=== PATIENT | female | born 1960 | race Caucasian/White ===

== ENCOUNTER → 2022-11-21 | Outpatient (CLI) | payer BC ==
[2022-11-21 11:06] LABS: HCT 48.5 % (37.2-46.3); HGB 15.6 d/dL (12.0-15.0); MCH 28.2 pg (27.0-32.0); MCHC 32.2 d/dL (32.0-37.0); MCV 87.7 FL (80.0-97.0); Mean Platelet Volume 10.9 FL (9.5-12.2); NRBC Per 100 WBC 0 X 10*3/uL (0.00-0.01); Platelet Count 259 X 10*3/uL (140-440); RBC 5.53 X 10*6/uL (4.10-5.20); RDW 13.2 % (11.5-14.5); WBC 7.87 X 10*3/uL (4.50-10.00)
[2022-11-21 11:07] LABS: Basophils # (A) 0.06 X 10*3/uL (0.00-0.10); Basophils % (A) 0.8 %; Eosinophils % (A) 2.5 %; Lymphocytes # (A) 2.36 X 10*3/uL (0.90-5.00); Monocytes # (A) 0.62 X 10*3/uL (0.20-1.00); Monocytes % (A) 7.9 %; Neutrophils # (A) 4.61 X 10*3/uL (1.80-7.70); Neutrophils % (A) 58.5 %
[2022-11-21 11:14] LABS: BUN/Creat Ratio 20.43 Ratio (12.00-20.00); Blood Urea Nitrogen 14.3 mg/dL (9.0-27.0); Calcium 9.6 mg/dL (8.7-10.3); Chloride 102 mmol/L (96-109); Glucose 154 mg/dL (70-110); Potassium 4.6 mmol/L (3.5-5.5); Sodium 139 mmol/L (135-145)
== END | disposition home or self-care (01) ==
LOC: LABWHC1 07:53
PROVIDERS: ATTEND Orthopaedic Surgery Hand Surgery
DX: Z01.818 Encounter for other preprocedural examination (principal); I11.9 Hypertensive heart disease without heart failure; I49.8 Other specified cardiac arrhythmias; I45.10 Unspecified right bundle-branch block; I45.19 Other right bundle-branch block; I45.81 Long QT syndrome
CPT/HCPCS: 36415; 80048; 85025; 93005

== ENCOUNTER 2022-12-13 07:23 | Day surgery (SDC) | payer BC ==
[2022-12-06 14:11] VITALS: BMI 43.3
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
[~2022-12-13 07:23] MED LIST: DEXAMETHASONE SOD PHOSPHATE 4 MG/ML 1 ML VIAL IV ONE; HYDROmorphone 0.5 MG/0.5 ML SYRINGE IVP PRN; LACTATED RINGERS 1,000 ML IV SCH; LIDOCAINE 1% (10MG/ML) FOR IV START INTRADERMA PRN; ONDANSETRON 4 MG/2 ML VIAL IVP ONE
[2022-12-13 08:13] LABS: Glucose,Whole Blood 129 mg/dL (70-110)
[2022-12-13] MEDS ORDERED: LIDOCAINE 2% (PF) 20 MG/ML 5 ML VIAL ONE (08:20)
[2022-12-13] MEDS ORDERED: fentaNYL (PF) 50 MCG/ML 2 ML AMP IVP ONE (08:51)
[2022-12-13] MEDS ORDERED: MIDAZOLAM 2 MG/2 ML VIAL IVP ONE (08:51)
[2022-12-13] MEDS ORDERED: ePHEDrine 50 MG/ML 1 ML VIAL ONE (09:16)
[2022-12-13] MEDS ORDERED: fentaNYL (PF) 50 MCG/ML 2 ML AMP ONE (09:16)
[2022-12-13] MEDS ORDERED: ROPIVACAINE 5 MG/ML 30 ML VIAL ONE (09:16)
[2022-12-13] MEDS ORDERED: LIDOCAINE 1% INJ 10MG/ML (20 ML MDV) ONE (09:16)
[2022-12-13] MEDS ORDERED: KETOROLAC 15 MG/ML 1 ML VIAL ONE (09:16)
[2022-12-13] MEDS ORDERED: LIDOCAINE 2% (PF) 20 MG/ML 2 ML VIAL ONE (09:16)
[2022-12-13] MEDS ORDERED: PROPOFOL 10 MG/ML 20 ML VIAL IV ONE (09:16)
--- NOTE | 2022-12-13 10:29 | P.ANPRN ---
Procedure Note - Anesthesia - Nerve Block Performed Right Axillary Single Date of Procedure: 12/13/22 Procedure Start Time: 08:51 Procedure Stop Time: 08:56 Location of Patient: PreOp Indication: Acute Post-Operative Pain, Requested by Surgeon Specifically requested for management of pain by DrKayleigh: Merritt Patel Sedation Type: Sedate with meaningful contact maintained Preparation: Sterile Prep Position: Supine Catheter: None Needle Types: Pajunk Needle Gauge: 20 Ultrasound used to visualize needle placement: Yes Ultrasound used to observe medication spread: Yes Blood Aspirated: No Pain Paresthesia on Injection Noted: No Resistance on Injection: Normal Image Stored and Saved: Yes Events: Uneventful and Well Tolerated
--- NOTE | 2022-12-13 10:35 | P.OP ---
Date of Procedure: 12/13/22 Preoperative Diagnosis: 1.) Right thumb CMC arthritis 2.) Right wrist STT arthritis Postoperative Diagnosis: 1.) Right thumb CMC arthritis 2.) Right wrist STT arthritis Procedure(s) Performed: 1.) Right thumb CMC basilar joint arthroplasty 2.) Right partial trapezoid excision Implants: Arthrex 3.5mm SwivelLock suture anchor x 2 Anesthesia: GETA, regional Surgeon: Merritt Patel Machine Lacer #1: Guillermo Carney Estimated Blood Loss (ml): 0 Pathology: none sent Condition: stable Disposition: PACU Description of Procedure: This is a 61 year old female who presents today for a right thumb CMC basal joint arthroplasty after having failed conservative treatment for severe thumb CMC arthritis and partial trapezoid excision for advanced STT arthritis. Risks and benefits of surgery were discussed with the patient including bleeding, da mage to surrounding tissue, infection, need for further surgery as well as risks of anesthesia including pulmonary embolism and even and the patient wished to proceed with surgical intervention. The patients was seen in the pre- operative area by myself. Consent and H&P were completed and updated. The correct extremity was marked in the pre-operative area by myself and all other questions were answered. Patient received a upper extremity nerve block by the department of anesthesia. He then was brought to the operating room by the department of anesthesia. They remained on the portable stretcher and a rolling hand table was brought to the side of the operative extremity. The patient was then drifted off to sleep by the department of anesthesia. A nonsterile tourniquet was then applied to the operative extremity and the right upper extremity was then prepped and draped in normal sterile fashion. Pre-operative time out was performed indicating the correct patient, procedure and laterality. All in the room agreed. Pre-operative antibiotics were given prior to skin incision. The operative extremity was the exsanguinated with an esmarch bandage and the tourniquet was inflated to 2 50mmHg. Longitudinal incision was made over the left thumb CMC joint with a 15 blade scalpel. Blunt dissection was taken down to subcutaneous tissues with littler scissors taking care to preserve the branches of the superficial radial nerve. Dorsal radial artery was identified proximally in the incision and protected throughout the procedure. Scalpel was then made to incise the thumb CMC joint creating full thickness flaps off of the proximal metacarpal base and trapezium, this plane was further developed with a periosteal elevator. Elevator was then utilized to identify the thumb CMC joint and scaphotrapezial joint. McGlamory elevator was then used to excise the trapezium whole. There was advanced arthritic changes at the scaphoid and trapezoid articulation. A 1/4 inch osteotome was used to remove the proximal half of the trapezoid and there was no longer contact between the scaphoid and trapezoid in flexion/extension and radial and ulnar deviation Guidewire was then introduced down to the laser line at the base of the first metacarpal through the same incision and was over drilled. Another guidewire was then inserted at the radial base of the first metacarpal near the Insertion of APL and was then over drilled with normal drill guide. A 3.5mm Arthrex SwiveLock anchor was then inserted into the base of the first metacarpal. While holding the thumb in slight traction and full adduction, another 3.5mm Arthrex SwiveLock anchor was inserted into the base of the second metacarpal and the two strands of fibertape were centered across the first metacarpal base to create a sling around the base suspending the thumb metacarpal, good garrett purchase was appreciated. The thumb was successfully suspended and full ROM was achieved passively. Suture ends were cut and skin was closed with several interrupted 4-0 Monocryl sutures followed by a running 4-0 Monocryl stitch. Sterile dressing consisting of mastisol and steri strips followed by 4x4s cast padding, and a thumb spica plaster splint was applied. Tourniquet was let down and the hand had brisk cap refill and normal perfusion immediately. The patient was then woken by the department of anesthesia and transferred to PACU in stable condition. Guillermo WRIGHT was present for the case and assisted in major portions of procedure and protection of vital neurovascular structures. Merritt Patel D.O. Orthopedic Hand/Upper Extremity Surgeon
[2022-12-13 11:07] VITALS: TEMP 96.8
[2022-12-13 11:36] VITALS: RESP 20
[2022-12-13 12:03] VITALS: BP 130/60; PULSE 53
== END 2022-12-13 12:20 | disposition home or self-care (01) ==
LOC: OR 07:23
PROVIDERS: ATTEND Orthopaedic Surgery Hand Surgery
DX: M18.11 Unilateral primary osteoarthritis of first carpometacarpal joint, right hand (principal); M19.031 Primary osteoarthritis, right wrist; G89.18 Other acute postprocedural pain; I10 Essential (primary) hypertension; E11.9 Type 2 diabetes mellitus without complications; K21.9 Gastro-esophageal reflux disease without esophagitis; K57.92 Diverticulitis of intestine, part unspecified, without perforation or abscess without bleeding; Z88.0 Allergy status to penicillin; Z87.828 Personal history of other (healed) physical injury and trauma; Z90.710 Acquired absence of both cervix and uterus; Z80.9 Family history of malignant neoplasm, unspecified; Z79.899 Other long term (current) drug therapy; Z79.891 Long term (current) use of opiate analgesic; Z79.84 Long term (current) use of oral hypoglycemic drugs
CPT/HCPCS: 25447; 64415; C1713; J2250; J1100; J2405; J2001 ×2; J3010; J2795; J1885; J2704

== ENCOUNTER → 2023-10-10 | Outpatient (CLI) | payer BC ==
[2023-10-10 14:29] VITALS: BP 125/80; PULSE 59; RESP 18; TEMP 98.1
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
== END ==
LOC: 3 N SLEEP 14:02
PROVIDERS: ATTEND Internal Medicine
CPT/HCPCS: 99211